=== PATIENT | female | born 1995 | race Caucasian/White ===

== ENCOUNTER 2020-03-07 00:30 | Emergency (ER) | payer OTHER ==
[~2020-03-07] VITALS: Ht 167.6 cm; Wt 71.7 kg
[2020-03-07 00:42] VITALS: Ht 167.6 cm; Wt 71.7 kg
[2020-03-07 02:01] VITALS: BP 121/81
== END 2020-03-07 02:01 ==
LOC: ED 00:30
DX: Z02.89 Encounter for other administrative examinations (principal)